=== PATIENT | female | born 1960 | race Caucasian/White ===

== ENCOUNTER 2025-05-19 07:30 | Outpatient (CLI) | payer OTHER ==
[~2025-05-19] VITALS: Ht 162.6 cm; Wt 70.3 kg
[2025-05-19 08:15] VITALS: BP 122/73; O2SAT 98
[2025-05-19 08:40] VITALS: BP 131/81; O2SAT 99
[2025-05-19 08:55] VITALS: BP 138/79; O2SAT 99
[2025-05-19 09:10] VITALS: BP 145/70; O2SAT 99
== END 2025-05-28 13:53 | disposition home or self-care (01) ==
LOC: TOM 07:30
PROVIDERS: ATTEND Internal Medicine Nephrology
DX: N18.5 Chronic kidney disease, stage 5 (principal)